=== PATIENT | female | born 1985 | race African-American/Black ===

== ENCOUNTER 2017-01-15 13:21 | Emergency (ER) | payer SELFPAY ==
[2017-01-15] MEDS ORDERED: AMOXicillin 250 MG CAP ONE (13:56)
[2017-01-15] MEDS ORDERED: Benzonatate 100 MG CAP ONE (13:56)
== END 2017-01-15 14:03 | disposition home or self-care (01) ==
LOC: MADERS 13:21
DX: J20.9 Acute bronchitis, unspecified (principal); F17.210 Nicotine dependence, cigarettes, uncomplicated
CPT/HCPCS: 99283